=== PATIENT | male | born 1995 | race Hispanic/Latino ===

== ENCOUNTER 2019-04-23 17:53 | Emergency (ER) | payer OTHER ==
[2019-04-23] MEDS ORDERED: PROMETHAZINE 25 MG TABLET ONE (18:32)
--- NOTE | 2019-04-23 19:03 | EDPHYS ---
Physician Documentation [facility] Name: Luis Torres Age: 23 yrs Sex: Male : 1995 Arrival Date: 04/23/2019 Time: 17:56 Bed 18 Private MD: ED Physician Pranav Dorsey HPI: 04/23 18:26 This 23 yrs old Male presents to ER via Ambulatory with complaints of Cough, snw Nausea/Vomiting, Sore Throat. 18:26 The patient or guardian reports cough, flu symptoms, hoarse voice. Onset: The snw symptoms/episode began/occurred suddenly, 2 week(s) ago, and became persistent. Severity of symptoms: At their worst the symptoms were moderate. Associated signs and symptoms: Pertinent positives: fever, nausea, rhinorrhea, sore throat, vomiting. The patient has not experienced similar symptoms in the past. The patient has not recently seen a physician. not sleeping 2nd to cough. Historical: - Allergies: 18:09 No Known Allergies; la1 - PMHx: 18:09 None; la1 - Immunization history:: Adult Immunizations up to date. - Social history:: Smoking status: Patient/guardian denies using tobacco. - Ebola Screening: : No symptoms or risks identified at this time. ROS: 18:25 Eyes: Negative for injury, pain, redness, and discharge. snw 18:25 Neck: Negative for injury, pain, and swelling, Cardiovascular: Negative for chest pain, palpitations, and edema. 18:25 Back: Negative for injury and pain, : Negative for injury, bleeding, discharge, and swelling, MS/Extremity: Negative for injury and deformity, Skin: Negative for injury, rash, and discoloration, Neuro: Negative for headache, weakness, numbness, tingling, and seizure. 18:25 Constitutional: Positive for body aches, chills, fatigue, fever, malaise, poor PO intake. 18:25 ENT: Positive for nasal discharge, rhinorrhea, sinus congestion, sore throat. 18:25 Respiratory: Positive for cough, with no reported sputum. 18:25 Abdomen/GI: Positive for nausea, vomiting. Exam: 18:24 Head/Face: Normocephalic, atraumatic. Eyes: Pupils equal round and reactive to light, snw extra-ocular motions intact. Lids and lashes normal. Conjunctiva and sclera are non-icteric and not injected. Cornea within normal limits. Periorbital areas with no swelling, redness, or edema. 18:24 Neck: Trachea midline, no thyromegaly or masses palpated, and no cervical lymphadenopathy. Supple, full range of motion without nuchal rigidity, or vertebral point tenderness. No Meningismus. Chest/axilla: Normal chest wall appearance and motion. Nontender with no deformity. No lesions are appreciated. Cardiovascular: Regular rate and rhythm with a normal S1 and S2. No gallops, murmurs, or rubs. Normal PMI, no JVD. No pulse deficits. Respiratory: Lungs have equal breath sounds bilaterally, clear to auscultation and percussion. No rales, rhonchi or wheezes noted. No increased work of breathing, no retractions or nasal flaring. Abdomen/GI: Soft, non-tender, with normal bowel sounds. No distension or tympany. No guarding or rebound. No evidence of tenderness throughout. Back: No spinal tenderness. No costovertebral tenderness. Full range of motion. Skin: Warm, dry with normal turgor. Normal color with no rashes, no lesions, and no evidence of cellulitis. MS/ Extremity: Pulses equal, no cyanosis. Neurovascular intact. Full, normal range of motion. Neuro: Awake and alert, GCS 15, oriented to person, place, time, and situation. Cranial nerves II-XII grossly intact. Motor strength 5/5 in all extremities. Sensory grossly intact. Cerebellar exam normal. Normal gait. Psych: Awake, alert, with orientation to person, place and time. Behavior, mood, and affect are within normal limits. 18:24 Constitutional: The patient appears alert, awake, uncomfortable. 18:24 ENT: Ear canal(s): are normal, TM's: erythema, that is mild, bilaterally, Nose: Nasal mucosa: edematous, Mouth: is normal, Posterior pharynx: erythema, that is mild, Voice: is hoarse. Vital Signs: 18:09 BP 150 / 65; Pulse 88; Resp 16; Temp 98.4; Pulse Ox 100% on R/A; Weight 86.18 kg; la1 Height 5 ft. 7 in. (170.18 cm); 19:05 BP 125 / 70; Pulse 82; Resp 16 S; Temp 98.3(O); Pulse Ox 96% on R/A; Pain 0/10; cc3 18:09 Body Mass Index 29.76 (86.18 kg, 170.18 cm) la1 MDM: 18:16 Patient medically screened. snw 18:27 Data reviewed: vital signs, nurses notes. Data interpreted: Pulse oximetry: on room air snw is 100 %. Interpretation: normal. Counseling: I had a detailed discussion with the patient and/or guardian regarding: the historical points, exam findings, and any diagnostic results supporting the discharge/admit diagnosis, the presence of at least one elevated blood pressure reading (>120/80) during this emergency department visit, lab results, the need for outpatient follow up, to return to the emergency department if symptoms worsen or persist or if there are any questions or concerns that arise at home. Special discussion: I have referred the patient to see his PCP for further evaluation of high blood pressure. Based on the history and exam findings, there is no indication for further emergent testing or inpatient evaluation. I discussed with the patient/guardian the need to see the primary care provider for further evaluation of the symptoms. 04/23 18:21 Order name: Strep; Complete Time: 19:03 em 04/23 18:52 Order name: Throat Culture EDMS Administered Medications: 18:48 Not Given (Patient Refused): Phenergan 25 mg PO once em Disposition: 04/24 13:06 Co-signature as Attending Physician, Pranav Dorsey MD I agree with the assessment and kdr plan of care. Disposition: 04/23/19 19:03 Discharged to Home. Impression: Acute upper respiratory infection, unspecified, Malaise and fatigue. - Condition is Stable. - Discharge Instructions: Fever, Adult, Hypertension, Upper Respiratory Infection, Adult, Cool Mist Vaporizer, Fatigue, Rehydration, Adult. - Prescriptions for Zyrtec 10 mg Oral Tablet - take 1 tablet by ORAL route once daily As needed; 20 tablet. Tessalon Perles 100 mg Oral Capsule - take 1 capsule by ORAL route every 8 hours As needed; 15 capsule. orphenadrine citrate 100 mg Oral Tablet Sustained Release - take 1 tablet by ORAL route 2 times per day As needed; 20 tablet. - Work release form, Medication Reconciliation Form, Thank You Letter, Antibiotic Education, Prescription Opioid Use form. - Follow up: Emergency Department; When: As needed; Reason: Worsening of condition. Follow up: Private Physician; When: 2 - 3 days; Reason: Recheck today's complaints, Continuance of care, Re-evaluation by your physician. Signatures: Dispatcher [employer] Pranav Woods MD MD kdr Therrien, Shelly, COSMETICS MACHINE OPERATOR-C COSMETICS MACHINE OPERATOR-Csnw Ricki Tang, HELP DESK INTERN HELP DESK INTERN Isiah Wilde RN RN la1 Devorah Davalos cc3 Corrections: (The following items were deleted from the chart) 04/23 19:18 19:03 04/23/2019 19:03 Discharged to Home. Impression: Acute upper respiratory cc3 infection, unspecified; Malaise and fatigue. Condition is Stable. Discharge Instructions: Fever, Adult, Hypertension, Upper Respiratory Infection, Adult, Cool Mist Vaporizer, Fatigue, Rehydration, Adult. Prescriptions for Zyrtec 10 mg Oral Tablet - take 1 tablet by ORAL route once daily As needed; 20 tablet, Tessalon Perles 100 mg Oral Capsule - take 1 capsule by ORAL route every 8 hours As needed; 15 capsule, orphenadrine citrate 100 mg Oral Tablet Sustained Release - take 1 tablet by ORAL route 2 times per day As needed; 20 tablet. and Forms are Work release form, Medication Reconciliation Form, Thank You Letter, Antibiotic Education, Prescription Opioid Use. Follow up: Emergency Department; When: As needed; Reason: Worsening of condition. Follow up: Private Physician; When: 2 - 3 days; Reason: Recheck today's complaints, Continuance of care, Re-evaluation by your physician. snw
--- NOTE | 2019-04-23 19:03 | ER ---
Nurse's Notes [facility] Name: Luis Torres Age: 23 yrs Sex: Male : 1995 Arrival Date: 04/23/2019 Time: 17:56 Bed 18 Private MD: Diagnosis: Acute upper respiratory infection, unspecified;Malaise and fatigue Presentation: 04/23 18:08 Presenting complaint: Patient states: N/V/ sore throat, cough, for two weeks. la1 Transition of care: patient was not received from another setting of care. Onset of symptoms was April 23, 2019. Risk Assessment: Do you want to hurt yourself or someone else? Patient reports no desire to harm self or others. Initial Sepsis Screen: Does the patient meet any 2 criteria? No. Patient's initial sepsis screen is negative. Does the patient have a suspected source of infection? No. Patient's initial sepsis screen is negative. Care prior to arrival: None. 18:08 Method Of Arrival: Ambulatory la1 18:08 Acuity: NIA 3 la1 Triage Assessment: 19:05 General: Appears in no apparent distress. comfortable, Behavior is calm, cooperative, cc3 appropriate for age. Pain: Denies pain. GI: Reports nausea, vomiting, but denies at the moment. Historical: - Allergies: 18:09 No Known Allergies; la1 - PMHx: 18:09 None; la1 - Immunization history:: Adult Immunizations up to date. - Social history:: Smoking status: Patient/guardian denies using tobacco. - Ebola Screening: : No symptoms or risks identified at this time. Screenin:20 Abuse screen: Denies threats or abuse. Nutritional screening: No deficits noted. em Tuberculosis screening: No symptoms or risk factors identified. Fall Risk None identified. 19:07 Abuse screen: Denies threats or abuse. Denies injuries from another. Nutritional cc3 screening: No deficits noted. Tuberculosis screening: No symptoms or risk factors identified. Fall Risk Ambulatory Aid- None/Bed Rest/Nurse Assist (0 pts). Gait- Normal/Bed Rest/Wheelchair (0 pts) Mental Status- Oriented to own ability (0 pts). Assessment: 18:20 General: Appears in no apparent distress. comfortable, Behavior is calm, cooperative, em Reports feeling ill for 2 weeks. Pain: Complains of pain in throat and head Pain currently is 0 out of 10 on a pain scale. Neuro: Level of Consciousness is awake, alert, obeys commands, Oriented to person, place, time, situation, Appropriate for age Reports headache. Cardiovascular: Capillary refill < 3 seconds Patient's skin is warm and dry. Respiratory: Reports cough that is non-productive, persistent Airway is patent Respiratory effort is even, unlabored, Respiratory pattern is regular, symmetrical, Breath sounds are clear bilaterally. GI: Abdomen is flat, Patient currently denies nausea. Derm: Skin is intact, is healthy with good turgor, Skin is pink, warm \T\ dry. Musculoskeletal: Capillary refill < 3 seconds, Range of motion: intact in all extremities. 19:08 General: Appears in no apparent distress. comfortable, Behavior is calm, cooperative, cc3 appropriate for age. Pain: Denies pain. Neuro: Level of Consciousness is awake, alert, obeys commands, Oriented to person, place, time, situation, Appropriate for age. Cardiovascular: Denies chest pain, Heart tones S1 S2 present Capillary refill < 3 seconds in bilateral fingers Patient's skin is warm and dry. Respiratory: Airway is patent Respiratory effort is even, unlabored, Respiratory pattern is regular, symmetrical. GI: Abdomen is round non-distended, Bowel sounds present X 4 quads. : No signs and/or symptoms were reported regarding the genitourinary system. EENT: No signs and/or symptoms were reported regarding the EENT system. Derm: Skin is intact, is healthy with good turgor, Skin is pink, warm \T\ dry. normal. Musculoskeletal: Circulation, motion, and sensation intact. Range of motion: intact in all extremities. 19:15 Reassessment: Patient appears in no apparent distress at this time. Patient and/or cc3 family updated on plan of care and expected duration. Pain level reassessed. Patient is alert, oriented x 3, equal unlabored respirations, skin warm/dry/pink. ASHA Vasquez discharged the patient home with prescriptions given. No IV cannula in situ. Patient left ER vitally stable and ambulatory. No valuables left in the patient's room. Patient denies pain at this time. Patient states feeling better. Patient states symptoms have improved. Vital Signs: 18:09 BP 150 / 65; Pulse 88; Resp 16; Temp 98.4; Pulse Ox 100% on R/A; Weight 86.18 kg; la1 Height 5 ft. 7 in. (170.18 cm); 19:05 BP 125 / 70; Pulse 82; Resp 16 S; Temp 98.3(O); Pulse Ox 96% on R/A; Pain 0/10; cc3 18:09 Body Mass Index 29.76 (86.18 kg, 170.18 cm) la1 ED Course: 17:56 Patient arrived in ED. mr 18:08 Triage completed. la1 18:09 Arm band placed on left wrist. la1 18:12 Christina Vincent FNP-C is PHCP. snw 18:12 Pranav Dorsey MD is Attending Physician. snw 18:20 Patient has correct armband on for positive identification. Bed in low position. Call em light in reach. Side rails up X2. 18:27 Strep Sent. kj1 18:27 Strep swab sent to lab. kj1 18:30 Ricki Tang LVN is Primary Nurse. em 19:07 No provider procedures requiring assistance completed. Patient did not have IV access em during this emergency room visit. Administered Medications: 18:48 Not Given (Patient Refused): Phenergan 25 mg PO once em Outcome: 19:03 Discharge ordered by . snw 19:10 Discharged to home ambulatory, with friend. cc3 19:10 Condition: stable 19:10 Discharge instructions given to patient, Instructed on discharge instructions, follow up and referral plans. medication usage, Demonstrated understanding of instructions, follow-up care, medications, Prescriptions given X 3. 19:18 Patient left the ED. cc3 Signatures: Christina Vincent FNP-C FNP-Tom Tucker Eliz mr TangRicki LVN LVN em Isiah Rivera, RN RN la1 Devorah Davalos cc3 Tawnya Shaver kj1
[2019-04-23 19:40] VITALS: BP 125/70; TEMP 98.3; O2SAT 96
== END 2019-04-23 19:18 | disposition home or self-care (01) ==
LOC: ER 17:53
DX: J06.9 Acute upper respiratory infection, unspecified (principal); R53.81 Other malaise; R53.83 Other fatigue
CPT/HCPCS: 87070; 87081; 99283; Q0169